=== PATIENT | male | born 1970 | race Two or more races ===

== ENCOUNTER 2018-06-20 07:25 | Emergency (ER) | payer OTHER ==
[~2018-06-20] VITALS: Ht 185.4 cm; Wt 120.2 kg
== END 2018-06-20 10:24 | disposition home or self-care (01) ==
LOC: ER 07:25
DX: S40.012A Contusion of left shoulder, initial encounter (principal); W18.39XA Other fall on same level, initial encounter; Y93.89 Activity, other specified; Y92.69 Other specified industrial and construction area as the place of occurrence of the external cause; Y99.8 Other external cause status